=== PATIENT | female | born 1960 | race Caucasian/White ===

== ENCOUNTER 2025-07-14 19:38 | Outpatient (CLI) | payer MEDICARE, SELFPAY | END 2025-07-14 19:39 | disposition home or self-care (01) | LOC: AMB 07-17 15:24 | PROVIDERS: PCP Family Medicine; Visit Provider Emergency Medicine | DX: R06.09 Other forms of dyspnea (principal) | CPT/HCPCS: A0425; A0427 ==

== ENCOUNTER 2025-07-14 20:16 | Emergency (ER) | payer MEDICARE, SELFPAY ==
[2025-07-14] VITALS (8 sets, daily range): BP systolic 171; BP diastolic 88; PULSE 76–87; RESP 20; TEMP 37.1; O2SAT 92–98; BMI 23.9
--- OUTSIDE RECORDS SUMMARY | 2025-07-14 20:18 | XMS_ITS | Clinical Summary ---
Author Organization [employer] [facility] Address [address] [place] [address] Care Team Providers Care Turbine Mechanic Name Role Phone Gisselle Benton MD Primary Care Provide r Allergies Active AllergyReactionsCriticalityNoted DateCommentsWheat Germ ExtractHives 01/18/1977 Medications MedicationSigDispense QuantityRefillsLast FilledStart DateEnd DateStatus cetirizine (ZYRTEC) 10 mg tablet Indications:Allergic rhinitis, cause unspecifiedTake 1 tablet by mouth once daily. 30 tablet PRN11/23/2011ctive Humphrey-3 Fatty Acids (FISH OIL) 500 mg capsule Take 1 capsule by mouth once daily.Active Magnesium Glycinate (MAG GLYCINATE) 100 mg tab Take 1 tablet by mouth 2 times daily.Active mometasone (NASONEX) (50 mcg each actuation) nasal spray Indications:Other allergic rhinitisInhale 1 [place]cad[place] to both nostrils once daily. 51 g ctive miscellaneous medical supply (Blood Pressure Cuff) [facility] Indications:Elevated BP without diagnosis of hypertensionAs directed. Automatic arm cuff, regular size. 1 Each 09/08/2021ctive fluticasone furoate-vilanteroL (BREO ELLIPTA) 100-25 mcg/dose inhalation powder Indications:Cough, unspecified typeInhale 1 Puff by mouth once daily. Rinse mouth after use 180 Each 5Active vit-min eye [id number] (PreserVision AREDS-2) chew tab Chew 1 Tablet by mouth two times daily.5Active betamethasone dipropionate 0.05 % ointment Indications:Eczema, unspecified typeApply topically to affected area(s) of fingertips at bedtime. Wear cotton gloves overnight. 45 g 5Active ketoconazole 2% shampoo (NIZORAL) 2 % shampoo Indications:Seborrheic dermatitisApply topically to affected area(s) lather on damp scalp, leave on for 5min, then rinse with water.Use several times a week to weekly, as needed. 120 mL 5Active valACYclovir (Valtrex) 1 gram tablet Indications:Oral herpesTake 1 Tablet (1 g) by mouth two times daily. 12 Tablet 5Active atomoxetine (Strattera) 40 mg capsule Indications:Attention deficit hyperactivity disorder (ADHD), unspecified ADHD typeTake 1 Capsule (40 mg) by mouth once daily. 90 Capsule 5Active estradioL (VAGIFEM) 10 mcg tab vaginal tablet Indications:Premature menopauseInsert 1 Tablet (10 mcg) into the vagina once daily. Three times per week. 36 Tablet 5Active amLODIPine (NORVASC) 2.5 mg tablet Indications:HTN (hypertension)Take 1 Tablet (2.5 mg) by mouth once daily. 90 Tablet 5Active albuterol HFA (Ventolin HFA) 90 mcg/actuation inhaler Indications:Other allergic rhinitisINHALE 2 PUFFS PRIOR TO EXERCISE, AND EVERY 6 HOURS NEEDED. 1 Each 505Active azithromycin (Zithromax Z-Adeel) 250 mg tablet Indications:Acute coughTake 500 mg (2 tabs) by mouth on day 1, then 250 mg (1 tab) daily for days 2-5. 6 Tablet 5Active benzonatate (TESSALON) 100 mg capsule Indications:Acute coughTake 1 Capsule (100 mg) by mouth 3 times daily if needed for Cough. 60 Capsule 5Active Active Problems ProblemNoted DateDiagnosed DatePap smear for cervical cancer pjhgqrada81/10/2024 Overview (02/01/2024): 12/2023 NIL/HPV negative. Plan: Routine Screening. Atypical nevus09/02/2023 Overview (09/02/2023): 08/31/2023 Right mid back, compound nevus with moderate atypia- monitor Oral apfiee6208/21/2015Screen for colon garcvf6807/08/2010 Overview (07/08/2010): Colonoscopy 06/2010 normal, poor prep repeat in 5 years Premature oauokfewr39/08/2009llergic rhinitis, cause unspecified Overview (10/04/2007): seasonal Attention deficit disorder with hyperactivity(314.01)Raynaud's syndrome Encounters DateTypeDepartmentCare DedwRjehzluppif02/18/4264Fuvgtc42/20/2025 9:25 AM BODY HANGER Office Visit [facility] [address] [place] [address] Roslyn Bob PA URI (cough x5 days, coughing spasms, chills, sore throat)06/13/2025Travel 04/23/2025 10:20 AM CDTOffice Visit [facility] [address] [place] [address] Rosemary Curtis MD Derm Problem (skin check)04/23/20250035Nmwiaw47/25/2025Travelfrom Last 3 Months Immunizations ImmunizationAdministration DatesNext DueCOVID-19 VACCINE SPIKEVAX (MODERNA 50MCG/0.5ML) 12YO+ PFS04/18/2023OVID-19 vaccine (Pfizer-BioNTech 30mcg/0.3mL) 12YO+ BIVALENT EDYTA MDV108/22/2021Influenza A (H1N1), Vzzchlmzprx75/13/2010 Influenza Virus, Ripyhtzjwil21/11/2017Influenza, IIV3 (Age >=3 years)05/02/2013, 05/16/2012Influenza, ENB102/05/2018Influenza, IIV4 (=>6mos) MDV1, 05/06/2021,04/30/2020,05/03/2019,05/04/2018,05/18/2017,05/12/2016,05/14/2015, 05/17/2014Influenza, Inactivated IIV3 (Age 65+ Years) Preserv Free06/24/2024 Influenza,CCIIV4 PRESERV FREE06/28/2023MMR09/25/2024Pneumococcal Conj 20-valent (Prevnar 20)01/19/2024Td (Age >=7 Years)11/05/2003,07/08/1999Tdap108/22/2021, 11/23/2011Zoster (Shingrix-RZV, recombinant)04/18/2023,09/07/2022 Family History Medical HistoryRelationNameCommentsCancerFatherLungHypertensionFatherAsthma Maternal GrandmotherHypertensionMotherCancer-breastPaternal AuntDiabetesPaternal AuntCancer-ovarianNo Family HistoryRelationNameStatusCommentsFatherMaternal GrandmotherMotherPaternal Aunt Social History Tobacco UseTypesPacks/DayYears UsedDateSmoking Tobacco: NeverSmokeless Tobacco: Never Tobacco Cessation:Counseling Given: No Alcohol UseStandard Drinks/WeekCommentsYes2 (1 standard drink = 0.6 oz pure alcohol)wine or screwdriver twice a weekPHQ-2AnswerDate RecordedPHQ-2 TOTAL QYIEY119Social ConnectionsAnswerDate RecordedDo you often feel lonely or isolated from those around you?Financial Resource StrainAnswerDate RecordedDifficulty of Paying Living Tpkgrxfr158/10/2025Difficulty of Paying Living ExpensesNot on file01/31/2025Food InsecurityAnswerDate RecordedDo you worry your food will run out before you are able to buy more? Transportation NeedsAnswerDate RecordedDoes lack of transportation keep you from medical appointments?Does lack of transportation keep you from work, meetings or getting things that you need?Housing StabilityAnswerDate RecordedWhat is your housing situation today?UtilitiesAnswerDate RecordedDo you have trouble paying for utilities (for example, heat, electricity, water, phone)?CommentsNoSex and Gender InformationValueDate RecordedSex Assigned at BirthNot on fileLegal SexFemale 08/07/2012 6:41 AM CSTGender IdentityNot on fileSexual OrientationNot on file OccupationIndustryJob Start DateJob End DateNot on fileNot on fileNot on fileNot on file Obstetrics History GravidaParaTermPretermABIABSABEctopicMultipleLivingLive Nzuplo5886MovzNdoidtbEI Total LaborLabor/2nd/6xgVybqukNamKtrkUhsvNVMCskH5B2BcwxFayqXivaIsuc Last Filed Vital Signs Vital SignReadingTime TakenCommentsBlood Cznlyakk918/6811 10:08 AM BODY HANGER Chgjf2731/20/2025 9:37 AM IAAUvkcrglsthb08 ??C (98.6 ??F)06/13/2025 9:37 AM BODY HANGER Respiratory Rate--Oxygen Nlsscifikd59%06/13/2025 9:37 AM CSTInhaled Oxygen Concentration--Pddrpj52.7 kg (136 lb)06/13/2025 9:37 AM PSPPlbghy319.8 cm (5' 2.5)01/31/2025 7:18 AM CDTBody Mass Index24.48001/31/2025 7:18 AM CDT Plan of Treatment DateTypeDepartmentCare Team (Latest Contact Info)Letihenmkzb84/22/2025 8:00 AM CSTAncillary Procedure [facility] [address] [place] [address] 08/06/2025 3:30 PM CSTOffice Visit [facility] [address] [place] [address] Gisselle Benton MD [address] [place] [address] [facility] DateLast DoneCommentsCOVID-19 vaccine series (2024- season), 04/18/2023, 06/22/2022, Additional history exists Influenza Vaccine (#1), 06/28/2023, 05/11/2022, Additional history existsFecal testing sDNA-FIT (Cologuard) for age 45-75/01/202506/30/2022Mammogram for age 45-7512/19/, 07/06/2023, 05/13/2022, Additional history existsBMI (ht and wt on same day) for age 18+01/31/2026 01/31/2025, 01/19/2024, 06/22/2022, Additional history existsDepression screening for age 12+, 01/23/2024, 01/19/2024, Additional history existsMedicare Wellness for age 65+, 01/19/2024 Lipids for age 45-750, 01/19/2024, 06/22/2022, Additional history existsTetanus kiksgip60, 11/23/2011, 11/05/2003, Additional history existsRSV vaccine for adults or (1 - 1-dose 75+ series)2033Hepatitis C screening for age 18-85Qakbgkcrp12/29/2022Zoster (shingles) series for age 50+Iqhggbxvp73/25/2023, 3Pneumococcal series for age 50+Vxleaojio25/27/2024EXA/DXA scan for age 65+Prcswbkjq42/01/2024, 02/06/2015Hepatitis B series for 19+Aged OutNo longer eligible based on patient's age to complete this topic Procedures Procedure NamePriorityDate/TimeAssociated DiagnosisCommentsB PERTUSSIS B PARAPERTUSSIS PCR NON VINYSYbfzbqc58/20/2025 10:10 AM BODY HANGER Acute cough INFLUENZA A/B XEBFnlnpal56/20/2025 9:41 AM BODY HANGER Viral URI COVID-19 RLUTJAEEQBbvtmkd40/20/2025 9:41 AM BODY HANGER Viral URI LIPID PANEL W REFLEX MEASURED ANWXhhzbvj02/10/2025 8:15 AM CDT Screening for cardiovascular condition XR MAMMO CORNELIA BILAT RCGTWYGuowauf05/19/2024 3:37 PM BODY HANGER Visit for screening mammogram XR DXA BONE DENSITY 2 SITES ATWBPTihnqou11/01/2024 9:50 AM CDT Menopause SDNA-FIT EXTERNAL (COLOGUARD)Qsjdppn3406/30/2022 7:08 AM BODY HANGER Screening for colon cancer ANTI SVTFsfyyme89/29/2022 3:48 PM BODY HANGER Encounter for hepatitis C screening test for low risk patient from Last 3 Months or Most Recently Relevant to Health Maintenance Results * B PERTUSSIS B PARAPERTUSSIS PCR NON BLOOD (06/13/2025 10:10 AM BODY HANGER)Component ValueRef RangeTest MethodAnalysis TimePerformed AtPathologist SignatureB PERTUSSIS MOYBrhfjomdWpmdqpwe94/23/2025 10:08 AM CSTLABTR[facility]ITY [facility] FOR [facility] ([facility])B PARAPERTUSS WLTUpnxidrnQpebojar81/23/2025 10:08 AM [facility])Specimen (Source)Anatomical Location / LateralityCollection Method / VolumeCollection TimeReceived TimeNasopharyngealSPECIMEN FROM NASOPHARYNGEAL STRUCTURE / UnknownNon-Blood / Fvvcqtj8506/13/2025 10:10 AM CST06/13/2025 10:25 AM BODY HANGER Narrative [facility] - 06/16/2025 10:08 AM BODY HANGER Test(s) 737574-Dybhcmzepn pertussis DNA; 379829- Bordetella parapertussis DNA was developed and its performance characteristics determined by [facility]. It has not been cleared or approved by the Food and Drug Administration. Performed at: ??01 - Lab[address] ??[id number] Department Store Manager: Jami Kessler MD, Phone: ??[phone] Authorizing ProviderResult TypeResult StatusAbby Nasra GOODRICH MICROBIOLOGYFinal ResultPerforming OrganizationAddressty/State/ZIP CodePhone Number [facility] ([facility]) [address] [place] [address], * COVID-19 MOLECULAR (06/13/2025 9:41 AM BODY HANGER)ComponentValueRef RangeTest Method Analysis TimePerformed AtPathologist SignatureCOVID 19 [facility]LE[facility]ULAR GpsbhdnqJfpsacod40/20/2025 6:51 PM CSTMETHODIST [facility] LABORATORYTESTING LABORATORYSentara [facility] Hdzztxvcgs40/20/2025 6:51 PM BODY HANGER [facility] LABORATORYComment:Specimen submitted to [facility] for testing.Specimen (Source)Anatomical Location / LateralityCollection Method / VolumeCollection TimeReceived TimeOtherSPECIMEN FROM NASAL FOSSAE / UnknownNon-Blood / Ybehala2706/13/2025 9:41 AM CST06/13/2025 9:50 AM BODY HANGER Narrative [facility] - 06/13/2025 6:51 PM BODY HANGER All PCR tests are subject to false negative result due to variability in viral load and collection technique. A negative result does not rule out a SARS-CoV-2 infection. Clinical correlation required. Authorizing ProviderResult TypeResult StatusAbby Nasra GOODRICH MICROBIOLOGYFinal ResultPerforming OrganizationAddressty/State/ZIP CodePhone Number [facility] [address] [place] [address], * INFLUENZA A/B PCR (06/13/2025 9:41 AM BODY HANGER)ComponentValueRef RangeTest Method Analysis TimePerformed AtPathologist SignatureINFLUENZA A PCRNegative 06/13/2025 6:51 PM CSTMARION GENERAL HOSPITALCENTRAL LABORATORYINFLUENZA B YEQEbdmstaa08/20/2025 6:51 PM CSTALLINA [facility]ALTH [facility] Specimen (Source)Anatomical Location / LateralityCollection Method / Volume Collection TimeReceived TimeOtherSPECIMEN FROM NASAL FOSSAE / UnknownNon-Blood / Fgciegl6206/13/2025 9:41 AM CST06/13/2025 9:50 AM BODY HANGER Narrative Authorizing ProviderResult TypeResult StatusAbby Nasra GOODRICH MICROBIOLOGYFinal ResultPerforming OrganizationAddressCity/State/ZIP CodePhone Number [facility] [address] [place] [phone], * (ABNORMAL) LIPID PANEL W REFLEX MEASURED LDL (01/31/2025 8:15 AM CDT)Component ValueRef RangeTest MethodAnalysis TimePerformed AtPathologist Signature CHOLESTEROL, JVYZP317(H)<200 mg/dLQuest Antibe Therapeutics DaleHDL TCSFCHBYLFF70 > OR = 50 mg/dLQuest [facility]ibe Therapeutics PjseKUMKCHTBFYWAP12<150 mg/dLQuest [facility]rapeutics DaleLDL-NDUYSQCDTLZ621(H)mg/dL (calc)[employer] DaleComment: Reference range: <100 Desirable range <100 mg/dL for primary prevention; <70 mg/dL for patients with CHD or diabetic patients with > or = 2 CHD risk factors. LDL-C is now calculated using the Chuck-Johnston calculation, which is a validated novel method providing better accuracy than the Friedewald equation in the estimation of LDL-C. Chuck SS et al. GINA. 2013;310(19): 8551-5847 (http://education.Wishpot/faq/XYY369) CHOL/HDLC RATIO3.7<5.0 (calc)[facility] HDL HEBHFFZHWZI748 (H)<130 mg/dL (calc)[facility] [employer] HospitaleComment: For patients with diabetes plus 1 major ASCVD risk factor, treating to a non-HDL-C goal of <100 mg/dL (LDL-C of <70 mg/dL) is considered a therapeutic option. Specimen (Source)Anatomical Location / LateralityCollection Method / Volume Collection TimeReceived TimeBloodBLOOD SPECIMEN / Fyehwvx9601/31/2025 8:15 AM CDT 01/31/2025 8:15 AM CDT Narrative Authorizing ProviderResult TypeResult StatusGisselle Benton MDCHEMISTRY Final ResultPerforming OrganizationAddressCity/State/ZIP CodePhone Number [phone] [facility] [address] [place] [address], [facility] [address] [place] [address] * XR MAMMO CORNELIA BILAT SCREEN (07/12/2024 3:37 PM BODY HANGER)Anatomical RegionLaterality ModalityBREASTS, Breast Left, Breast RightBilateralMammographySpecimen (Source)Anatomical Location / LateralityCollection Method / VolumeCollection TimeReceived Time Impressions 07/12/2024 4:00 PM BODY HANGER There is no radiographic evidence for malignancy. Recommend annual mammograms. MAMMOGRAM ASSESSMENT: ??ACR 1 Negative PATIENTS: You will also receive a letter with your examination results in an easy to read format. ??If you have questions about your results, please contact your referring provider. Narrative 07/12/2024 4:00 PM BODY HANGER For Patients: As a result of the Century Cures Act, medical imaging exams and procedure reports are released immediately into your electronic medical record. You may view this report before your referring provider. If you have questions, please contact your health care provider. XR MAMMO CORNELIA BILAT SCREEN [[id number]] CLINICAL HISTORY: ??This is an asymptomatic 63 y.o. patient. INDICATION FOR EXAM: Mammogram Screening. TECHNIQUE: CC & MLO views were obtained. This study was evaluated with the assistance of Computer-Aided Detection. Breast Tomosynthesis was used in interpretation. COMPARISON FILM: Yes 07/06/23 [facility] 05/13/22 [email or web address] FINDINGS: ??The breasts are extremely dense, which lowers the sensitivity of mammography. There are no dominant masses, suspicious micro calcifications or areas of architectural distortion. Authorizing ProviderResult TypeResult StatusGisselle Benton MDMAMMOFinal Result * (ABNORMAL) XR DXA BONE DENSITY 2 SITES AXIAL [29512.1] (01/23/2024 9:50 AM CDT)Anatomical RegionLateralityModalitySpine, HIPS, HIPL, HIPROtherSpecimen (Source)Anatomical Location / LateralityCollection Method / VolumeCollection TimeReceived Time Impressions 01/24/2024 1:44 PM CDT Osteopenia. RECOMMENDATIONS: The National Osteoporosis Foundation recommends pharmacologic treatment for patients with T-scores of -2.5 or less, patients with prior history of fragility fractures, or patients with 10-year probability of greater than 3% at hips or greater than 20% of suffering major osteoporotic fractures. Recommend continued optimization of calcium and vitamin D intake through dietary means and/or supplementation and regular exercise. Repeat scan recommended in 3-5 years. Catherine Nolasco PA-C [facility] 01/24/2024 Narrative 01/24/2024 1:44 PM CDT For Patients: Results are automatically released to your [email or web address] ([employer]) account once available, in compliance with federal regulations. This means that you may see your results before your provider has had a chance to review them. Please allow 2-3 business days for your provider to comment on the results. XR DXA Bone Mineral Density (BMD) EXAM LOCATION: [address] [address] PATIENT NAME: Yessenia Romeo DATE OF : 1960 EXAM DATE: 01/23/2024 REQUESTING PROVIDER: Gisselle Benton MD GENDER AT : female HEIGHT: 5' 2.25 (01/19/2024) WEIGHT: ??141 lb 4.8 oz (01/19/2024) MENOPAUSAL STATUS: Postmenopausal RACE/ETHNICITY: White RISK FACTORS: Menopause < Age 40 and White Race CURRENT MEDICATION FOR BONE LOSS: NONE INDICATION: Menopause COMPARISON DATE(S): 2014 DXA scans are compared to prior studies for a patient only when the two (or more) studies were performed on the same scanner. It is not possible to compare data generated on one scanner to data from another because there are not standards in DXA equipment. This applies even if the two scanners are made by the same material planning analyst. PROCEDURE: Dual-energy x-ray absorptiometry performed with routine technique. Reporting is completed in the form of a T-score. The T-score represents the standard deviation from peak bone mass based on young healthy adult. A Z-score is used for diagnosis in premenopausal women, and for men under the age of 50. FINDINGS: RESULT LUMBAR SPINE L1 - L4 BMD: 1.323 g/cm2 T-Score: + 1.0 Z-Score: + 2.7 Change from prior in 2015: ??Increase 1.6%. RESULTS FEMUR Left femoral neck BMD: 0.883 g/cm2 T-Score: - 1.1 Z-Score: + 0.4 Change from prior in 2015: ??Decrease 7.3%. Right femoral neck BMD: 0.866 g/cm2 T-Score: - 1.2 Z-Score: - 0.2 Change from prior in 2015: ??Decrease 5.7%. Left hip BMD: 1.029 g/cm2 T-Score: + 0.2 Z-Score: + 1.4 Change from prior in 2015: ??Decrease 4.6%. Right hip BMD: 1.023 g/cm2 T-Score: + 0.1 Z-Score: + 1.3 Change from prior in 2015: ??Decrease 6.1%. WHO criteria: Normal: T-score at or above -1 SD Osteopenia: T-score between -1.1 and -2.4 SD Osteoporosis: T-score at or below -2.5 SD FRAX RISK CALCULATION (USED FOR OSTEOPENIA ONLY): 10-year probability of major osteoporotic fracture: 8.4%. 10-year probability of hip fracture: 0.7%. Authorizing ProviderResult TypeResult StatusoRde Magy Benton MDDEXAFinal Result * SDNA-FIT EXTERNAL (COLOGUARD) (06/30/2022 7:08 AM BODY HANGER)ComponentValueRef Range Test MethodAnalysis TimePerformed AtPathologist SignatureNONINV COLON CA DNA+OCC BLD SCRN STL-GLPRhdhpqzsWpssdjqv95/12/2022 9:37 AM [employer] (CLIA #:[id number])Comment: NEGATIVE TEST RESULT. A negative Cologuard result indicates a low likelihood that a colorectal cancer (CRC) or advanced adenoma (adenomatous polyps with more advanced pre-malignant features) ??is present. The chance that a person with a negative Cologuard test has a colorectal cancer is less than 1in 1500 (negative predictive value >99.9%) or has an advanced adenoma is less than 5.3% (negative predictive value 94.7%). These data are based on a prospective cross-sectional study of 10,000individuals at average risk for colorectal cancer who were screened with both Cologuard and colonoscopy. (Gilda Hannah al, N Engl J Med 2014;370(14):8716-5314) The normal value (reference range) for this assay is negative. COLOGUARD RE-SCREENING RECOMMENDATION: Periodic colorectal cancer screening is an important part ofpreventive healthcare for asymptomatic individuals at average risk for colorectal cancer. ??Following a negative Cologuard result, the [place] [employer] Society and U.S. Multi-Society Task Force screening guidelines recommend a Cologuard re-screening interval of 3 years. References: [place] [employer] Guideline for Colorectal Cancer Screening: https://www.cancer.or g/cancer/qjloy-ytgdyd-uoxhvp/jlzvglvqa-azbibrzwi-zztgqnb/acs-recommendations.htm paula; River ESTRELLA, Sierra LUCIA, Husam DOMINGUEZ, Colorectal Cancer Screening: Recommendations for Physicians and Patients from the U.S. Multi-Society Task Force on Colorectal Cancer Screening , Am J Gastroenterology 2017; 112:1145-7814. TEST DESCRIPTION: Composite algorithmic analysis of stool DNA-biomarkers with hemoglobin immunoassay. ?? Quantitative values of individual biomarkers are not reportable and are not associated with individual biomarker result reference ranges. Cologuard is intended for colorectal cancer screening ofadults of either sex, 45 years or older, who are at average-risk for colorectal cancer (CRC). Cologuard has been approved for use by the U.S. FDA. The performance of Cologuard was established in a cross sectional study of average-risk adults aged 50-84. Cologuard performance in patients ages 45 to 49 years was estimated by sub-group analysis of near-age groups. Colonoscopies performed for a positive result may find as the most clinically significant lesion: colorectal cancer [4.0%], advanced adenoma (including sessile serrated polyps greater than or equal to 1cm diameter) [20%] or non- advanced adenoma [31%]; or no colorectal neoplasia [45%]. These estimates are derived from a prospective cross-sectional screening study of 10,000 individuals at average risk for colorectal cancer who were screened with both Cologuard and colonoscopy. (Gilda Logan, N Engl J Med 2014;370(14):1358-8937.) Cologuard may produce a false negative or false positive result (no colorectal cancer or precancerous polyp present at colonoscopy follow up). A negative Cologuard test result does not guarantee the absence of CRC or advanced adenoma (pre-cancer). The current Cologuard screening interval is every 3 years. ([place] [employer] Society and U.S. Multi-Society Task Force). Cologuard performance data in a 10,000 patient pivotal study using colonoscopy as the reference method can be accessed at the following location: www.[employer].Phrazit/results. Additional description of the Cologuard test process, warnings and precautions can be found at www.cologuard.com. Specimen (Source)Anatomical Location / LateralityCollection Method / Volume Collection TimeReceived TimeStool specimen (specimen) (Rectum)06/30/2022 7:08 AM CST07/01/2022 11:18 AM BODY HANGER Narrative Authorizing ProviderResult TypeResult StatusGisselle Benton MDURINEFinal ResultPerforming OrganizationAddressCity/State/ZIP CodePhone Number [employer] (CLIA #:[id number]) [place] [address], * ANTI HCV (06/22/2022 3:48 PM BODY HANGER)ComponentValueRef RangeTest MethodAnalysis TimePerformed AtPathologist SignatureHEPATITIS C ANTIBODYNon-Reactive Non-Zzziltyc33/02/2022 1:29 AM CSTSTANFORD UNIVERSITY MEDICAL CENTERWayin-[facility] LAB[facility] Comment:Antibodies to HCV not detected; does not exclude the possibility of exposure to HCV.Specimen (Source)Anatomical Location / LateralityCollection Method / VolumeCollection TimeReceived TimeBloodBLOOD SPECIMEN / Unknown Venipuncture / Btlrqwc5506/22/2022 3:48 PM CST06/22/2022 3:49 PM BODY HANGER Narrative Authorizing ProviderResult TypeResult StatusGisselle Benton MDSEND OUTS Final ResultPerforming OrganizationAddressCity/State/ZIP CodePhone Number [employer] [facility] [address] [place] [address], [place] from Last 3 Months or Most Recently Relevant to Health Maintenance Insurance Care Teams Team MemberRelationshipSpecialtyStart DateEnd Gisselle Benton MD [address] [place] [address] PCP - GeneralFamily [id number]/17/21
--- NOTE | 2025-07-14 20:31 | CRLHL7_ITS ---
For Patients: As a result of the Century Cures Act, medical imaging exams and procedure reports are released immediately into your electronic medical record. You may view this report before your referring provider. If you have questions, please contact your health care provider. INDICATION: Dyspnea cough TECHNIQUE: Two view chest. FINDINGS: The lungs are clear. The heart, mediastinum and pulmonary vessels are of normal size. There is no evidence of pleural disease. IMPRESSION: Negative chest. Dictated by Stacey Norton MD @ 07/14/2025 9:48:38 PM (Electronically Signed)
[2025-07-14] MEDS: ALBUTEROL SULFATE 2.5 MG/3 ML VIAL.NEB NEB (20:50)
[2025-07-14 21:31] LABS: PCR FLU A Negative PCR FLU A (Negative); PCR FLU B Negative PCR FLU B (Negative); PCR RSV Negative PCR RSV (Negative); SARS PCR* Negative SARS-CoV-2 (Negative)
--- NOTE | 2025-07-14 22:06 | ED.GENADULT ---
HPI - General Adult General Chief complaint: Asthma Stated complaint: Asthma Time Seen by Provider: 07/14/25 20:31 History of Present Illness HPI narrative: Pleasant 58 sleeve female presenting to the ER today by EMS for acute onset of shortness of breath that occurred this evening at home. Patient reports that she was on the couch watching 60 minutes when she suddenly had a coughing fit and just could not catch her breath. She has a history of asthma but could not get any of her albuterol inhaler and so called 911. EMS reports that when they arrived on scene she was not hypoxic but she was significantly short of breath and tachypneic. Lung sounds were tight and wheezy. They administered a DuoNeb in route with marked improvement. Patient is feeling quite a bit better now. Patient reports that she does have history of asthma but rarely has flares. She was 1st diagnosed about tender 20 years ago when she was diagnosed with exercise-induced asthma. She has an albuterol inhaler an p.r.n. inhaler for combination of inhaled corticosteroid. She had a flare of asthma month or 2 ago. She was treated with her inhalers and got better. She has plans to follow-up with her PCP to discuss her asthma control regimen but that appointment is not scheduled until next month, in July. For the past several days she has had a little bit of a cough. No fever. No chest pain. She has otherwise been feeling well. She was able to take her dog for a long walk today and this evening was at home on the couch when her asthma exacerbations patient started. She has never had 1 this bad before and has never even the need to come to the ER before. She has never been hospitalized. Now that she is here she is feeling quite a bit better but still a little bit short of breath. Related Data Home Medications ?Medication ?Instructions ?Recorded ?Confirmed albuterol sulfate 90 mcg/actuation 2 inh inhalation Q6H PRN 10/03/23 07/14/25 breath activated powder inhaler amlodipine 2.5 mg tablet 2.5 mg PO DAILY 10/03/23 07/14/25 betamethasone dipropionate 0.05 % topical 10/03/23 10/03/23 topical ointment estradiol 10 mcg vaginal tablet 10 mcg vaginal 2XW 10/03/23 07/14/25 ketoconazole 2 % shampoo topical 10/03/23 10/03/23 atomoxetine 40 mg capsule 40 mg PO QAM 07/14/25 07/14/25 fluticasone furoate 100 1 ea inhalation DAILY 07/14/25 07/14/25 mcg-vilanterol 25 mcg/dose inhalation powder Previous Rx's ?Medication ?Instructions ?Recorded prednisone 20 mg tablet 40 mg (2 x 20 mg) PO DAILY #10 tabs 07/14/25 Allergies Allergy/AdvReac Type Severity Reaction Status Date / Time No Known Drug Allergies Allergy Verified 07/14/25 20:28 Exam Narrative: Exam Narrative: Constitutional: Appears well-developed and well-nourished. Alert. Conversant. Non toxic. HENT: Head: Atraumatic. Nose: Nose normal. Mouth/Throat: Oral mucosa is clear and moist. no trismus. Pharynx normal. Eyes: Conjunctivae normal. EOM normal. Pupils equal, round, and reactive to light. No scleral icterus. Neck: Normal range of motion. Neck supple. No tracheal deviation present. No JVD Cardiovascular: Normal rate, regular rhythm. No gallop. No friction rub. No murmur heard. Symmetric radial artery pulses Pulmonary/Chest: Effort normal. No stridor. No respiratory distress. Bilateral wheezes. She has bronchospastic coughing when she tries to breathe out. No rales. No rhonchi . No tenderness. Abdominal: Soft No distension. No mass. No tenderness. No rebound. No guarding. Musculoskeletal: RUE: Normal range of motion. No tenderness. No deformity LUE: Normal range of motion. No tenderness. No deformity RLE: Normal range of motion. No edema. No tenderness. No deformity LLE: Normal range of motion. No edema. No tenderness. No deformity Neurological: Alert and oriented to person, place, and time. Normal strength. CN II-VII intact. No sensory deficit. GCS eye subscore is 4. GCS verbal subscore is 5. GCS motor subscore is 6. Normal coordination Skin: Skin is warm and dry. No rash noted. No pallor. Normal capillary refill. Psychiatric: Normal mood. Normal affect. Const: Vital Signs, click to edit/add: Vital Signs - 24 hr 07/14/25 20:28 07/14/25 21:09 07/14/25 21:16 Temperature 98.8 F Pulse Rate 83 87 Pulse Rate [Pulse Oximeter] 86 Respiratory Rate 20 Blood Pressure [Le ft Upper Arm] 171/88 H Pulse Oximetry 97 98 98 Oxygen Delivery Me thod Room Air 07/14/25 21:30 07/14/25 21:45 07/14/25 22:00 Temperature Pulse Rate 76 84 82 Pulse Rate [Pulse Oximeter] Respiratory Rate Blood Pressure [Le ft Upper Arm] Pulse Oximetry 96 94 95 Oxygen Delivery Me thod 07/14/25 22:15 07/14/25 22:30 Temperature Pulse Rate 81 79 Pulse Rate [Pulse Oximeter] Respiratory Rate Blood Pressure [Le ft Upper Arm] Pulse Oximetry 96 92 Oxygen Delivery Me thod Course Vital Signs Vital signs: Initial Vital Signs Temperature 98.8 F 07/14/25 20:28 Temperature Source Temporal Artery Scan 07/14/25 20:28 Pulse Rate 86 07/14/25 20:28 Respiratory Rate 20 07/14/25 20:28 Blood Pressure 171/88 H 07/14/25 20:28 Blood Pressure Mean 115 H 07/14/25 20:28 Blood Pressure Position High-Fowlers 07/14/25 20:28 Pulse Oximetry 97 07/14/25 20:28 Oxygen Delivery Method Room Air 07/14/25 20:28 Vital Signs Temperature 98.8 F 07/14/25 20:28 Pulse Rate 86 07/14/25 20:28 Respiratory Rate 20 07/14/25 20:28 Blood Pressure 171/88 H 07/14/25 20:28 Pulse Oximetry 97 07/14/25 20:28 Oxygen Delivery Method Room Air 07/14/25 20:28 Temperature 98.8 F 07/14/25 20:28 Pulse Rate 79 07/14/25 22:30 Respiratory Rate 20 07/14/25 20:28 Blood Pressure 171/88 H 07/14/25 20:28 Pulse Oximetry 92 07/14/25 22:30 Oxygen Delivery Method Room Air 07/14/25 20:28 Medications Administered Medications: Discontinued Medications Generic Name Dose Route Start Last Admin Trade Name Freq PRN Reason Stop Dose Admin Albuterol 2.5 mg 07/14/25 20:31 07/14/25 20:50 Albuterol Sulfate 2.5 Mg/3 Ml Vial.Neb NEB 07/14/25 20:32 2.5 mg ONCE ONE Administration Prednisone 40 mg 07/14/25 20:31 07/14/25 20:42 Prednisone 20 Mg Tablet PO 07/14/25 20:32 40 mg ONCE ONE Administration Medical Decision Making MDM Narrative Medical decision making narrative: This patient presents for evaluation of shortness of breath and wheezing. Signs and symptoms are consistent with asthma exacerbation. A broad differential was considered including asthma, pneumonia, bronchitis, pneumothorax, viral induced wheezing, allergic phenomena, among others. Given her recent cough and illness we did obtain viral PCR swab which is negative for coronavirus, influenza, RSV. Chest x-ray is negative for pneumonia. There are no signs at this point of any serious etiologies including those mentioned above. The patient feels and sounds improved after interventions here in ED. No indication for hospitalization at this time including no hypoxia, no marked increase in respiratory rate, and there are minimal to no retractions. Supportive outpatient management is indicated, medications for discharge noted above. Close followup with primary care physician. Return if increased wheezing, progressive shortness of breath, develops fever greater than 102. Questions answered and patient comfortable with plan. Lab Data Labs: Lab Results 07/14/25 Range/Units 20:45 SARS-CoV-2 (PCR) Negative SARS-CoV-2 (Negative) Influenza Type A (PCR) Negative PCR FLU A (Negative) Influenza Type B (PCR) Negative PCR FLU B (Negative) RSV (PCR) Negative PCR RSV (Negative) Imaging Data Chest x-ray: Attestation: I have reviewed the pertinent imaging results. Radiologist's impression: IMPRESSION: Negative chest. Discharge Plan Discharge Clinical Impression: Asthma exacerbation Patient Disposition: Home, Self-Care Condition: Stable Instructions: Asthma (DC) Additional Instructions: As we discussed, your x-ray looks clear tonight. No sign of pneumonia or heart failure or other serious problems. Your swab is negative for coronavirus, influenza, RSV. I suspect that your asthma exacerbation may be caused by change in the weather or your long walk with her dog or potentially some other virus. For now you continue to use your inhaler every 2 hours if needed. Also take the prednisone 40 mg daily for 5 more days. Please return to the ER, or call 911 right away if you have worsening trouble breathing, chest tightness, weakness, dizziness or fainting, or any other concerns. Please follow-up with your regular doctor to discuss your asthma and make sure your on the right long-term asthma controller medications. Prescriptions: New prednisone 20 mg tablet 40 mg PO DAILY Qty: 10 0RF No Action amlodipine 2.5 mg tablet 2.5 mg PO DAILY betamethasone dipropionate 0.05 % ointment topical ketoconazole 2 % shampoo topical estradiol 10 mcg tablet 10 mcg vaginal 2XW albuterol sulfate 90 mcg/actuation aerosol powdr breath activated 2 inh inhalation Q6H PRN atomoxetine 40 mg capsule 40 mg PO QAM fluticasone furoate-vilanterol 100-25 mcg/dose blister with device 1 ea INHALATION DAILY Follow Up/Referrals: Gisselle Benton MD [Primary Care Provider, Family Practice] Stand Alone Forms: [employer] Info Instructions
== END 2025-07-14 22:46 | disposition home or self-care (01) ==
PROVIDERS: Emergency Provider Emergency Medicine; PCP Family Medicine
DX: J45.901 Unspecified asthma with (acute) exacerbation (principal)
CPT/HCPCS: 71046; 87631; 94640; 99283; 99284; J7512

== ENCOUNTER 2025-07-16 21:34 | Emergency (ER) | payer MEDICARE, SELFPAY ==
--- OUTSIDE RECORDS SUMMARY | 2025-07-16 21:36 | XMS_ITS | Clinical Summary ---
Author Organization [facility] Address [address] [place] [address] Care Team Providers Care Grouter Helper Name Role Phone Gisselle Benton MD Primary Care Provide r Allergies Active AllergyReactionsCriticalityNoted DateCommentsWheat Germ ExtractHives 01/18/1977 Medications MedicationSigDispense QuantityRefillsLast FilledStart DateEnd DateStatus cetirizine (ZYRTEC) 10 mg tablet Indications:Allergic rhinitis, cause unspecifiedTake 1 tablet by mouth once daily. 30 tablet PRN11/23/2011ctive [place]-3 Fatty Acids (FISH OIL) 500 mg capsule Take 1 capsule by mouth once daily.Active Magnesium Glycinate (MAG GLYCINATE) 100 mg tab Take 1 tablet by mouth 2 times daily.Active mometasone (NASONEX) (50 mcg each actuation) nasal spray Indications:Other allergic rhinitisInhale 1 Flow[place] to both nostrils once daily. 51 g ctive miscellaneous medical supply (Blood Pressure Cuff) [facility] [place] Indications:Elevated BP without diagnosis of hypertensionAs directed. Automatic arm cuff, regular size. 1 Each 09/08/2021ctive fluticasone furoate-vilanteroL (BREO ELLIPTA) 100-25 mcg/dose inhalation powder Indications:Cough, unspecified typeInhale 1 Puff by mouth once daily. Rinse mouth after use 180 Each 5Active vit-min eye [id number]-hjm-tike (PreserVision AREDS-2) chew tab Chew 1 Tablet [...] ProblemNoted DateDiagnosed DatePap smear for cervical cancer bxofmslvd66/10/2024 Overview (02/01/2024): 12/2023 NIL/HPV negative. Plan: Routine Screening. Atypical nevus09/02/2023 Overview (09/02/2023): 08/31/2023 Right mid back, compound nevus with moderate atypia- monitor Oral pcghrv5108/21/2015Screen for colon hdyxsp2807/08/2010 Overview (07/08/2010): Colonoscopy 06/2010 normal, poor prep repeat in 5 years Premature gmscmerbo02/08/2009llergic rhinitis, cause unspecified Overview (10/04/2007): seasonal Attention deficit disorder with hyperactivity(314.01)Raynaud's syndrome Encounters DateTypeDepartmentCare RztgLjixvmhbvzz87/21/2025Orders Only [facility] Scanner 1 scan: (1-Ord) [facility], CHEST 2V, 5109/11/2024Travel 06/13/2025 9:25 AM CSTOffice Visit [facility] [address] [place], [place] [id number] Roslyn Bob PA URI (cough x5 days, coughing spasms, chills, sore throat)06/13/2025Travel 04/23/2025 10:20 AM CDTOffice Visit [facility] [address] [place] [address] Rosemary Curtis MD Derm Problem (skin check)04/23/20256888Tkbiud77/25/2025Travelfrom Last 3 Months Immunizations ImmunizationAdministration DatesNext DueCOVID-19 VACCINE SPIKEVAX (MODERNA 50MCG/0.5ML) 12YO+ PFS04/18/2023OVID-19 vaccine (Pfizer-BioNTech 30mcg/0.3mL) 12YO+ BIVALENT PF, MDV108/22/2021Influenza A (H1N1), Ygpsekiliyl54/13/2010 Influenza Virus, Heqvttaabns62/11/2017Influenza, IIV3 (Age >=3 years)05/02/2013, 05/16/2012Influenza, XSM886Influenza, IIV4 (=>6mos) MDV1, 05/06/2021,04/30/2020,05/03/2019,05/04/2018,05/18/2017,05/12/2016,05/14/2015, 05/17/2014Influenza, Inactivated IIV3 [...] or screwdriver twice a weekPHQ-2AnswerDate RecordedPHQ-2 TOTAL SAQVS928Social ConnectionsAnswerDate RecordedDo you often feel lonely or isolated from those around you?Financial Resource StrainAnswerDate RecordedDifficulty of Paying Living Fzjoyxeq971/10/2025Difficulty of Paying Living ExpensesNot on file01/31/2025Food InsecurityAnswerDate [...] on fileNot on file Obstetrics History GravidaParaTermPretermABIABSABEctopicMultipleLivingLive Cgimdd9860NzqzLcbmmysNR Total LaborLabor/2nd/1lfPfazyzEjkEzgxQzpeNPGZhtO2W3ZckoRvnhJxrbEbbo Last Filed Vital Signs Vital SignReadingTime TakenCommentsBlood Oukgykqj223/6806/13/2025 10:08 AM IN STORE MARKETING ASSOCIATE Epwkr2139/20/2025 9:37 AM SEQOuydkikmryw09 ??C (98.6 ??F)06/13/2025 9:37 AM IN STORE MARKETING ASSOCIATE Respiratory Rate--Oxygen Tzfobvevix72%06/13/2025 9:37 AM CSTInhaled Oxygen Concentration--Vuwgcm10.7 kg (136 lb)06/13/2025 9:37 AM NFCNbfpey300.8 cm (5' 2.5)01/31/2025 7:18 AM CDTBody Mass Index24.48001/31/2025 7:18 AM CDT Plan of Treatment DateTypeDepartmentCare Team (Latest Contact Info)Helyjvozfdz81/13/2026 3:30 PM CSTOffice Visit [facility] [address] [place] [address] Gisselle Benton MD [address] [place] [address] [facility] DateLast DoneCommentsCOVID-19 vaccine series ( season), 04/18/2023, 06/22/2022, Additional history exists Influenza Vaccine (#1), 06/28/2023, 05/11/2022, Additional history existsFecal testing sDNA-FIT (Cologuard) for age 45-7506/30/2025 06/30/2022Mammogram for age 40-75, 07/06/2023, 05/13/2022, Additional history existsBMI (ht and wt on same day) for age 18+01/31/2026 01/31/2025, 01/19/2024, 06/22/2022, Additional history existsDepression screening for age 12+, 01/23/2024, 01/19/2024, Additional history existsMedicare Wellness for age 65+, 01/19/2024 Lipids for age 45-750, 01/19/2024, 06/22/2022, Additional history existsTetanus , 11/23/2011, 11/05/2003, Additional history existsRSV vaccine for adults or (1 - 1-dose 75+ series)2033Hepatitis C screening for age 18-36Qehplxnar28/29/2022Zoster (shingles) series for age 50+Ntpylhikb67/25/2023, 3Pneumococcal series for age 50+Ghrlxeruk15/27/2024EXA/DXA scan for age 65+Bxfkxmhqp92/01/2024, 02/06/2015Hepatitis B series for 19+Aged OutNo longer eligible based on patient's age to complete this topic Procedures Procedure NamePriorityDate/TimeAssociated DiagnosisCommentsSCAN-RADIOLOGY REPORT 07/14/2025 12:00 AM IN STORE MARKETING ASSOCIATE B PERTUSSIS B PARAPERTUSSIS PCR NON CKUXSVttpnlw60/20/2025 10:10 AM IN STORE MARKETING ASSOCIATE Acute cough INFLUENZA A/B PKANdrourh78/20/2025 9:41 AM IN STORE MARKETING ASSOCIATE Viral URI COVID-19 RONLTCHTDYvpwauc43/20/2025 9:41 AM IN STORE MARKETING ASSOCIATE Viral URI LIPID PANEL W REFLEX MEASURED NSNKbyczrw17/10/2025 8:15 AM CDT Screening for cardiovascular condition XR MAMMO CORNELIA BILAT QCVPPYDhkewhn13/19/2024 3:37 PM IN STORE MARKETING ASSOCIATE Visit for screening mammogram XR DXA BONE DENSITY 2 SITES ICYLYIvsjfjd17/01/2024 9:50 AM CDT Menopause SDNA-FIT EXTERNAL (COLOGUARD)Pdgehhq5406/30/2022 7:08 AM IN STORE MARKETING ASSOCIATE Screening for colon cancer ANTI UGYAeukwle01/29/2022 3:48 PM IN STORE MARKETING ASSOCIATE Encounter for hepatitis C screening test for low risk patient from Last 3 Months or Most Recently Relevant to Health Maintenance Results * SCAN-RADIOLOGY REPORT (07/14/2025 12:00 AM IN STORE MARKETING ASSOCIATE)Anatomical RegionLaterality ModalityOther Narrative Authorizing ProviderResult TypeResult StatusScannerOTHERFinal Result * B PERTUSSIS B PARAPERTUSSIS PCR NON BLOOD (06/13/2025 10:10 AM IN STORE MARKETING ASSOCIATE)Component ValueRef RangeTest MethodAnalysis TimePerformed AtPathologist SignatureB PERTUSSIS LPZYebpcbpeJmxfcdgt20/23/2025 10:08 AM CSTLABCORP [facility])B PARAPERTUSS CEGZuunrjdyYlgihcbc16/23/2025 10:08 AM CSTLABCORP [facility])Specimen (Source)Anatomical Location / LateralityCollection Method / VolumeCollection TimeReceived TimeNasopharyngealSPECIMEN FROM NASOPHARYNGEAL STRUCTURE / UnknownNon-Blood / Cobfqod61/ 10:10 AM CST06/13/2025 10:25 AM IN STORE MARKETING ASSOCIATE Narrative [facility] ([facility]ET) - 06/16/2025 10:08 AM IN STORE MARKETING ASSOCIATE Test(s) 030733-Qyyegwhvso pertussis DNA; 101821- Bordetella parapertussis DNA was developed and its performance characteristics determined by [facility]. It has not been cleared or approved by the Food and Drug Administration. Performed at: ??[address] ??[id number] Speech Coach: Jami Kessler MD, Phone: ??[phone] Authorizing ProviderResult TypeResult StatusAbby Nasra GOODRICH MICROBIOLOGYFinal ResultPerforming OrganizationAddressCity/State/ZIP CodePhone Number [facility] ([facility]) [address] [place] [address], * COVID-19 MOLECULAR (06/13/2025 9:41 AM IN STORE MARKETING ASSOCIATE)ComponentValueRef RangeTest Method Analysis TimePerformed AtPathologist SignatureCOVID 19 [facility] MOLECULAR MfpumzduTzdlkpgt35/20/2025 6:51 PM [facility] LAB[facility]ATORYTESTING LABORATORYS[facility] Sbtpnryoeq79/20/2025 6:51 PM IN STORE MARKETING ASSOCIATE [facility] LABORATORYComment:Specimen submitted to [facility] for testing.Specimen (Source)Anatomical Location / LateralityCollection Method / VolumeCollection TimeReceived TimeOtherSPECIMEN FROM NASAL FOSSAE / UnknownNon-Blood / Cxtmfvh9506/13/2025 9:41 AM CST06/13/2025 9:50 AM IN STORE MARKETING ASSOCIATE Narrative [facility] - 06/13/2025 6:51 PM IN STORE MARKETING ASSOCIATE All PCR tests are subject to false negative result due to variability in viral load and collection technique. A negative result does not rule out a SARS-CoV-2 infection. Clinical correlation required. Authorizing ProviderResult TypeResult StatusAbby Nasra GOODRICH MICROBIOLOGYFinal ResultPerforming OrganizationAddressCity/State/ZIP CodePhone Number [facility] [address] [place] [address], [place] * INFLUENZA A/B PCR (06/13/2025 9:41 AM IN STORE MARKETING ASSOCIATE)ComponentValueRef RangeTest Method Analysis TimePerformed AtPathologist SignatureINFLUENZA A PCRNegative 06/13/2025 6:51 PM CSTSENTARA [facility] LAB[facility]-CENTRAL LABORATORYINFLUENZA B EXIPpvnyfbh63/20/2025 6:51 PM [facility] Specimen (Source)Anatomical Location / LateralityCollection Method / Volume Collection TimeReceived TimeOtherSPECIMEN FROM NASAL FOSSAE / UnknownNon-Blood / Avtmqjy2806/13/2025 9:41 AM CST06/13/2025 9:50 AM IN STORE MARKETING ASSOCIATE Narrative Authorizing ProviderResult TypeResult StatusAbby Nasra GOODRICH MICROBIOLOGYFinal ResultPerforming OrganizationAddressCity/State/ZIP CodePhone Number [facility] [address] [place] [phone], * (ABNORMAL) LIPID PANEL W REFLEX MEASURED LDL (01/31/2025 8:15 AM CDT)Component ValueRef RangeTest MethodAnalysis TimePerformed AtPathologist Signature CHOLESTEROL, ULSRA032(H)<200 mg/dLQuest Zumbox-Weever Apps DaleHDL QZGBESHQLIY75 > OR = 50 mg/dLQuest ProQuo EoxmYCRDDBLFHZBLG69<150 mg/dLQuest CH4eeLDL-KJCQCDPHBJA209(H)mg/dL (calc)achvreComment: Reference range: <100 Desirable range <100 mg/dL for primary prevention; <70 mg/dL for patients with CHD or diabetic patients with > or = 2 CHD risk factors. LDL-C is now calculated using the Chuck-Preston calculation, which is a validated novel method providing better accuracy than the Friedewald equation in the estimation of LDL-C. Chuck FLORES et al. GINA. 2013;310(19): 4329-6942 (http://education.Namshi.Simply Zesty/faq/PRN883) CHOL/HDLC RATIO3.7<5.0 (calc)[place].com-Frank & OakeNON HDL UOYLYMFCGXD158 (H)<130 mg/dL (calc)achvreComment: For patients with diabetes plus 1 major ASCVD risk factor, treating to a non-HDL-C goal of <100 mg/dL (LDL-C of <70 mg/dL) is considered a therapeutic option. Specimen (Source)Anatomical Location / LateralityCollection Method / Volume Collection TimeReceived TimeBloodBLOOD SPECIMEN / Pobbcae2701/31/2025 8:15 AM CDT 01/31/2025 8:15 AM CDT Narrative Authorizing ProviderResult TypeResult StatusGisselle Benton MDCHEMISTRY Final ResultPerforming OrganizationAddressCity/State/ZIP CodePhone Number [facility] [address] [place] [address], [facility]ostics[facility] [address] [place] [address] * XR MAMMO CORNELIA BILAT SCREEN (07/12/2024 3:37 PM IN STORE MARKETING ASSOCIATE)Anatomical RegionLaterality ModalityBREASTS, Breast Left, Breast RightBilateralMammographySpecimen (Source)Anatomical Location / LateralityCollection Method / VolumeCollection TimeReceived Time Impressions 07/12/2024 4:00 PM IN STORE MARKETING ASSOCIATE There is no radiographic evidence for malignancy. Recommend annual mammograms. MAMMOGRAM ASSESSMENT: ??ACR 1 Negative PATIENTS: You will also receive a letter with your examination results in an easy to read format. ??If you have questions about your results, please contact your referring provider. Narrative 07/12/2024 4:00 PM IN STORE MARKETING ASSOCIATE For Patients: As a result of the Century Cures Act, medical imaging exams and procedure reports are released immediately into your electronic medical record. You may view this report before your referring provider. If you have questions, please contact your health care provider. XR MAMMO CORNELIA BILAT SCREEN [[id number]] CLINICAL HISTORY: ??This is an asymptomatic 63 y.o. patient. INDICATION FOR EXAM: Mammogram Screening. TECHNIQUE: CC & MLO views were obtained. This study was evaluated with the assistance of Computer-Aided Detection. Breast Tomosynthesis was used in interpretation. COMPARISON FILM: Yes 07/06/23 [facility] 05/13/22 [facility] FINDINGS: ??The breasts are extremely dense, which lowers the sensitivity of mammography. There are no dominant masses, suspicious micro calcifications or areas of architectural distortion. Authorizing ProviderResult TypeResult Noris Benton MDMAMMOFinal Result * (ABNORMAL) XR DXA BONE DENSITY 2 SITES AXIAL [60874.1] (01/23/2024 9:50 AM CDT)Anatomical RegionLateralityModalitySpine, HIPS, HIPL, [...] recommended in 3-5 years. Catherine Nolasco PA-C [facility] 01/24/2024 Narrative 01/24/2024 1:44 PM CDT For Patients: Results are automatically released to your [facility] ([employer]) account once available, in compliance with federal regulations. This means that you may see your results before your provider has had a chance to review them. Please allow 2-3 business days for your provider to comment on the results. XR DXA Bone Mineral Density (BMD) EXAM LOCATION: [address] [address] PATIENT NAME: Yessenia Romeo DATE OF : [...] two scanners are made by the same precision farming coordinator. PROCEDURE: Dual-energy x-ray absorptiometry performed with routine [...] Z-Score: + 1.4 Change from prior in 2014: ??Decrease 4.6%. Right hip BMD: 1.023 g/cm2 [...] of hip fracture: 0.7%. Authorizing ProviderResult TypeResult StatusGisselle Benton MDDEXAFinal Result * SDNA-FIT EXTERNAL (COLOGUARD) (06/30/2022 7:08 AM IN STORE MARKETING ASSOCIATE)ComponentValueRef Range Test MethodAnalysis TimePerformed AtPathologist SignatureNONINV COLON CA DNA+OCC BLD SCRN STL-FJIOqvoxrldKzwommvy67/12/2022 9:37 AM CSTEXWeHaus (CLIA #:[id number])Comment: NEGATIVE TEST RESULT. A negative Cologuard result [...] screened with both Cologuard and colonoscopy. (Gilda Maddox et al, N Engl J Med 2014;370(14):4663-5061) The normal value (reference range) for this assay is negative. COLOGUARD RE-SCREENING RECOMMENDATION: Periodic colorectal cancer screening is an important part ofpreventive healthcare for asymptomatic individuals at average risk for colorectal cancer. ??Following a negative Cologuard result, the [place] Cancer Society and U.S. Multi-Society Task Force screening guidelines recommend a Cologuard re-screening interval of 3 years. References: [place] Cancer Society Guideline for Colorectal Cancer Screening: https://www.cancer.or g/cancer/syutn-relmhz-mimazr/pydnllqjg-asypktbhb-fnquegn/acs-recommendations.htm l.; River ESTRLELA, Sierra LUCIA, Husam LynnK, Colorectal Cancer Screening: Recommendations for Physicians and Patients from the U.S. Multi-Society Task Force on Colorectal Cancer Screening , Am J Gastroenterology 2017; 112:9522-8507. TEST DESCRIPTION: Composite algorithmic analysis of stool [...] (Gilda Hannah al, N Engl J Med 2014;370(14):0923-6660.) Cologuard may produce a false negative or false positive result (no colorectal cancer or precancerous polyp present at colonoscopy follow up). A negative Cologuard test result does not guarantee the absence of CRC or advanced adenoma (pre-cancer). The current Cologuard screening interval is every 3 years. ([place] Cancer Society and U.S. Multi-Society Task Force). Cologuard performance data in a 10,000 patient pivotal study using colonoscopy as the reference method can be accessed at the following location: www.[employer].Simply Zesty/results. Additional description of the Cologuard test process, warnings and precautions can be found at www.cologuard.com. Specimen (Source)Anatomical Location / LateralityCollection Method / Volume Collection TimeReceived TimeStool specimen (specimen) (Rectum)06/30/2022 7:08 AM CST07/01/2022 11:18 AM IN STORE MARKETING ASSOCIATE Narrative Authorizing ProviderResult TypeResult StatusGisselle Benton MDURINEFinal ResultPerforming OrganizationAddressCity/State/ZIP CodePhone Number [employer] (CLIA #:[id number]) [place] [address], * ANTI HCV (06/22/2022 3:48 PM IN STORE MARKETING ASSOCIATE)ComponentValueRef RangeTest MethodAnalysis TimePerformed AtPathologist SignatureHEPATITIS C ANTIBODYNon-Reactive Non-Dycfussz62/02/2022 1:29 AM CSTSENTARA [facility] Comment:Antibodies to HCV not detected; does not exclude the possibility of exposure to HCV.Specimen (Source)Anatomical Location / LateralityCollection Method / VolumeCollection TimeReceived TimeBloodBLOOD SPECIMEN / Unknown Venipuncture / Mwdspnj4506/22/2022 3:48 PM CST06/22/2022 3:49 PM IN STORE MARKETING ASSOCIATE Narrative Authorizing ProviderResult TypeResult StatusGisselle Benton MDSEND OUTS Final ResultPerforming OrganizationAddressCity/State/ZIP CodePhone Number [facility] [address] [place] [address], from Last 3 Months or Most Recently Relevant to Health Maintenance Insurance Care Teams Team MemberRelationshipSpecialtyStart DateEnd Date Gisselle Benton MD [address] [place] [address] PCP - GeneralFamily Rvuprvuu25/17/21
[2025-07-16 21:42] VITALS: BP 162/89; PULSE 113; RESP 20; TEMP 36.7; O2SAT 97; BMI 24.1
[2025-07-16 21:51] VITALS: O2SAT 97
--- NOTE | 2025-07-16 21:56 | ED.GENADULT ---
HPI - General Adult General Chief complaint: Asthma Stated complaint: asthma attack Time Seen by Provider: 07/16/25 21:55 History of Present Illness HPI narrative: Cough x3 days, two nights ago came in by ambulance Taking prednisone?cough flares up in the evening Constant cough Using inhalers per patient Wixela BID and albuterol every 3 hours No new symptoms 64-year-old woman presenting to the emergency department with persistent cough. Seems to be worse in the evening or when she is lying down. Flare of cough really over the last 3 days. Had some cold symptoms a little while back and then settled and now has returned. Did try some DayQuil. Was seen here 2 days ago with similar. Was given a course of prednisone and thought that was improving a little bit. Had jags of coughing this evening and just could not catch her breath ultimately calling for EMS. Does have a history of what sounds like exercise-induced asthma. Has albuterol inhaler and then also Wixela. Asking about other treatments that she has tried your recently she has been trying popsicles and admittedly does not cough when she is sucking on this popsicles. Historically Nancy lee helped and she does have a few of these left but did not try it not wanting to pile on medication. Related Data Home Medications ?Medication ?Instructions ?Recorded ?Confirmed albuterol sulfate 90 mcg/actuation 2 inh inhalation Q6H PRN 10/03/23 07/16/25 breath activated powder inhaler amlodipine 2.5 mg tablet 2.5 mg PO DAILY 10/03/23 07/16/25 betamethasone dipropionate 0.05 % topical 10/03/23 10/03/23 topical ointment estradiol 10 mcg vaginal tablet 10 mcg vaginal 2XW 10/03/23 07/16/25 ketoconazole 2 % shampoo topical 10/03/23 10/03/23 atomoxetine 40 mg capsule 40 mg PO QAM 07/14/25 07/16/25 fluticasone furoate 100 1 ea inhalation DAILY 07/14/25 07/16/25 mcg-vilanterol 25 mcg/dose inhalation powder Previous Rx's ?Medication ?Instructions ?Recorded prednisone 20 mg tablet 40 mg (2 x 20 mg) PO DAILY #10 tabs 07/14/25 benzonatate 100 mg capsule 100 - 200 mg (1 - 2 x 100 mg) PO 07/16/25 TID PRN cough #30 caps Allergies Allergy/AdvReac Type Severity Reaction Status Date / Time No Known Drug Allergies Allergy Verified 07/16/25 21:50 Review of Systems Status of ROS: Reports: 6 or more systems reviewed and unremarkable except as noted in History and [facility] Smoking Status: Never smoker How often do you have a drink containing alcohol: 2-3 times a week How many standard drinks containing alcohol do you have on a typical day: 1 or 2 How often do you have six or more drinks on one occasion: Never AUDIT-C Alcohol total score: 3 Non-prescribed substance use: denies use Exam Narrative: Exam Narrative: Persistent coughing prior to my entering the room but during conversation with me, when she is talking she is not coughing. Lungs are free of wheeze. I do not hear actual stridor. Oropharynx is unremarkable other than some erythema in the far posterior oropharynx. Mild nasopharyngeal congestion without facial swelling or erythema. Heart in elevated rate and regular rhythm. No murmur. Does sound laryngitic Const: Vital Signs, click to edit/add: Vital Signs - 24 hr 07/16/25 21:42 07/16/25 21:51 07/16/25 22:06 Temperature 98.0 F Pulse Rate [Pulse Oximeter] 113 H Respiratory Rate 20 Blood Pressure [Ri ght Upper Arm] 162/89 H Pulse Oximetry 97 97 98 Oxygen Delivery Me thod Room Air Documenting provider has reviewed patient's vital signs: yes Course Vital Signs Vital signs: Initial Vital Signs Temperature 98.0 F 07/16/25 21:42 Temperature Source Temporal Artery Scan 07/16/25 21:42 Pulse Rate 113 H 07/16/25 21:42 Respiratory Rate 20 07/16/25 21:42 Blood Pressure 162/89 H 07/16/25 21:42 Blood Pressure Mean 113 H 07/16/25 21:42 Blood Pressure Position Sitting 07/16/25 21:42 Pulse Oximetry 97 07/16/25 21:42 Oxygen Delivery Method Room Air 07/16/25 21:42 Vital Signs Temperature 98.0 F 07/16/25 21:42 Pulse Rate 113 H 07/16/25 21:42 Respiratory Rate 20 07/16/25 21:42 Blood Pressure 162/89 H 07/16/25 21:42 Pulse Oximetry 97 07/16/25 21:42 Oxygen Delivery Method Room Air 07/16/25 21:42 Temperature 98.0 F 07/16/25 21:42 Pulse Rate 113 H 07/16/25 21:42 Respiratory Rate 20 07/16/25 21:42 Blood Pressure 162/89 H 07/16/25 21:42 Pulse Oximetry 98 07/16/25 22:06 Oxygen Delivery Method Room Air 07/16/25 21:42 Medications Administered Medications: Discontinued Medications Generic Name Dose Route Start Last Admin Trade Name Freq PRN Reason Stop Dose Admin Benzonatate 200 mg 07/16/25 23:16 07/16/25 23:29 Benzonatate 100 Mg Capsule PO 07/16/25 23:17 200 mg ONCE ONE Administration Epinephrine 0.5 ml 07/16/25 22:06 07/16/25 22:12 Racepinephrine Hcl 0.5 Ml Vial.Neb NEB 07/16/25 22:07 0.5 ml ONCE ONE Administration Medical Decision Making MDM Narrative Medical decision making narrative: I think probably laryngospasm is what has occurred here. Also is experiencing postnasal drip exacerbating her cough. I do not think there is a cardiac etiology here. Coughing symptom seem to be primarily stimulated by the throat. Might benefit from racemic epinephrine. And did give this along with ice chips. Overall seems improved. Also dose of benzonatate prior to departure. Sounds like these have been helpful before. See patient discharge plan for further discussion Can continue sucking on ice chips if it helps. Stay well-hydrated otherwise. Consider sleeping under the mist of a cool mist humidifier. Menthol vapors might be helpful. You received in the ER a dose of racemic/nebulized epinephrine and 200 mg of benzonatate (also known as Tessalon Perles). Oh, ice chips as well. Can take guaifenesin as mucolytic. Prescribing Tessalon Perles as discussed to further help with your cough. I cannot promise you though that what is dispensed to you will be the cute martinez Tessalon Perle form. Consider pseudoephedrine for drying/decongestion and therefore helpful with postnasal drip related cough. Diphenhydramine might be further drying. Consider anesthetic lozenges or throat sprays like Sucrets or Chloraseptic. Medical Records Medical records reviewed: Yes I reviewed the patient's medical records Discharge Plan Discharge Clinical Impression: Cough, Laryngospasm, Postnasal drip Patient Disposition: Home w/ Parent or Adult Condition: Improved Additional Instructions: Can continue sucking on ice chips if it helps. Stay well-hydrated otherwise. Consider sleeping under the mist of a cool mist humidifier. Menthol vapors might be helpful. You received in the ER a dose of racemic/nebulized epinephrine and 200 mg of benzonatate (also known as Tessalon Perles). Oh, ice chips as well. Can take guaifenesin as mucolytic. Prescribing Tessalon Perles as discussed to further help with your cough. I cannot promise you though that what is dispensed to you will be the cute martinez Tessalon Perle form. Consider pseudoephedrine for drying/decongestion and therefore helpful with postnasal drip related cough. Diphenhydramine might be further drying. Consider anesthetic lozenges or throat sprays like Sucrets or Chloraseptic. Prescriptions: New benzonatate 100 mg capsule 100 - 200 mg PO TID PRN (Reason: cough) Qty: 30 1RF No Action amlodipine 2.5 mg tablet 2.5 mg PO DAILY betamethasone dipropionate 0.05 % ointment topical ketoconazole 2 % shampoo topical estradiol 10 mcg tablet 10 mcg vaginal 2XW albuterol sulfate 90 mcg/actuation aerosol powdr breath activated 2 inh inhalation Q6H PRN atomoxetine 40 mg capsule 40 mg PO QAM fluticasone furoate-vilanterol 100-25 mcg/dose blister with device 1 ea INHALATION DAILY prednisone 20 mg tablet 40 mg PO DAILY Qty: 10 0RF Follow Up/Referrals: Gisselle Benton MD [Primary Care Provider, Family Practice] Stand Alone Forms: [employer] Info Instructions
[2025-07-16 22:06] VITALS: O2SAT 98
[2025-07-16] MEDS: RACEPINEPHRINE HCL 0.5 ML VIAL.NEB NEB (22:12)
[2025-07-16] MEDS: BENZONATATE 100 MG CAPSULE 200 MG PO (23:29)
== END 2025-07-16 23:46 | disposition home or self-care (01) ==
PROVIDERS: Emergency Provider Family Medicine; PCP Family Medicine
DX: R05.9 Cough, unspecified (principal); J38.5 Laryngeal spasm; R09.82 Postnasal drip
CPT/HCPCS: 94640; 94761; 99284; A9270